=== PATIENT | female | born 1940 | race Caucasian/White ===

== ENCOUNTER 2016-12-13 11:21 | Inpatient (IN) | payer OTHER, MEDICARE ==
[2016-12-13 11:33] VITALS: BMI 29.2
[2016-12-13] MEDS ORDERED: ONDANSETRON 4 MG/2 ML VIAL IVPB ONE (11:39)
[2016-12-13] MEDS ORDERED: SODIUM CHLORIDE 500 ML IV STA (11:39)
[2016-12-13] MEDS ORDERED: ONDANSETRON 4 MG/2 ML VIAL ONE (11:49)
[2016-12-13] MEDS ORDERED: morphine CARPU-JECT 2 MG/1 ML DISP.SYRIN IVPUSH ONE (11:50)
[2016-12-13] MEDS ORDERED: morphine CARPU-JECT 2 MG/1 ML DISP.SYRIN ONE (11:51)
--- NOTE | 2016-12-13 11:54 | PDOC ---
History of Present Illness <Aleks Mondragon - Last Filed: 12/13/16 13:40> - General History Source: Patient Exam Limitations: No Limitations - History of Present Illness Initial Comments: 12/13/16 13:18 The patient is a 76 year old female with a significant past medical history of kidney stones, diabetes, hypertension, cardiomyopathy s/p pacemaker who presents to the ED with complaints of abdominal pain, nausea, and vomiting for several days. The patient was recently seen in the ED yesterday for similar symptoms and was diagnosed with diverticulitis and discharged on oral antibiotics. The patient reports slight relief to her abdominal pain secondary to the medicine given in the ED yesterday. The patient reports she ate a yogurt last night and was unable to sleep secondary to nausea and gas. She states she took levaquin, reglan and percocet this morning and reports multiple episodes of vomiting. The patient reports chills associated with present symptoms. Denies fever or weakness. Denies chest pain or shortness of breath. Denies diarrhea or hematochezia. Denies frequency, urgency, or hematuria. Denies any other symptoms. PMD: Dr. Perez. <Dee Ruvalcaba - Last Filed: 12/13/16 15:54> - General Chief Complaint: Nausea/Vomiting Stated Complaint: VOMITING,PAIN Time Seen by Provider: 12/13/16 11:38 Past History - Past Medical History Anemia: No Asthma: No Cancer: No Cardiac Disorders: Yes (cardiomyopathy) CVA: No COPD: No CHF: No Dementia: No Diabetes: Yes GI Disorders: No Disorders: (Hx: kidney stones) HTN: Yes Hypercholesterolemia: Yes Liver Disease: No Suicide Attempt (Hx): No Seizures: No Thyroid Disease: No - Surgical History Abdominal Surgery: No Appendectomy: No Cardiac Surgery: Yes (PACEMAKER) Cholecystectomy: Yes Lung Surgery: No Neurologic Surgery: No Orthopedic Surgery: Yes (left knee surgery) - Psycho/Social/Smoking Cessation Hx Anxiety: No Suicidal Ideation: No Smoking History: Never smoked Have you smoked in the past 12 months: No Hx Alcohol Use: No Drug/Substance Use Hx: No Substance Use Type: None Hx Substance Use Treatment: No <Aleks Mondragon - Last Filed: 12/13/16 13:40> <Dee Ruvalcaba - Last Filed: 12/13/16 15:54> - Past Medical History Allergies/Adverse Reactions: Allergies Allergy/AdvReac Type Severity Reaction Status Date / Time No Known Drug Allergies Allergy Unknown Verified 12/13/16 11:27 wheat sensitivity AdvReac Uncoded 12/13/16 11:27 Home Medications: Ambulatory Orders Aspirin Coated [Ecotrin -] 81 mg PO DAILY 10/20/14 Nebivolol HCl [Bystolic] 5 mg PO DAILY 10/20/14 Rosuvastatin [Crestor -] 20 mg PO DAILY 10/20/14 Ca/D3/Mag#11/Zinc/Event Planner/Randy/Bor [Caltrate 600+D Plus Tablet] 1 each PO DAILY Metformin HCl 500 mg PO HS 08/07/15 Metformin HCl [Glucophage -] 1,000 mg PO DAILY 08/07/15 Ramipril 10 mg PO DAILY 08/07/15 Levofloxacin [Levaquin] 750 mg PO DAILY #10 tab 12/12/16 Metronidazole [Flagyl -] 500 mg PO QID #40 tablet 12/12/16 Oxycodone HCl/Acetaminophen [Percocet 5-325 mg Tablet] 1 - 2 tab PO Q4H #20 tablet MDD 6 12/12/16 Review of Systems - Review of Systems Able to Perform ROS?: Yes Comments:: 12/13/16 13:18 CONSTITUTIONAL: +chills No reported: Fever, Diaphoresis, Generalized Weakness, Malaise, Loss of Appetite HEENT: No reported: Rhinorrhea, Nasal Congestion, Throat Pain, Throat Swelling, Difficulty Swallowing, Mouth Swelling, Ear Pain, Eye Pain, Visual Changes CARDIOVASCULAR: No reported: Chest Pain, Syncope, Palpitations, Irregular Heart Rate, Lightheadedness, Peripheral Edema RESPIRATORY: No reported: Cough, Shortness of Breath, SOB with Exertion, Orthopnea, Wheezing , Stridor, Hemoptysis GASTROINTESTINAL: + abdominal pain, nausea, vomiting No reported: Abdominal Distension, Diarrhea, Constipation, Melena, Hematochezia GENITOURINARY: No reported: Dysuria, Frequency, Urgency, Hesitancy, Flank Pain, Genital Pain MUSCULOSKELETAL: No reported: Myalgia, Arthralgia, Joint Swelling, Back pain, Neck Pain SKIN: No reported: Rash, Itching, Pallor HEMEATOLOGIC/IMMUNOLOGIC: No reported: Easy Bleeding, Easy Bruising, Lymphadenopathy, Frequent infections ENDOCRINE: No reported: Unexplained Weight Gain, Unexplained Weight Loss, Heat Intolerance , Cold Intolerance NEUROLOGIC: No reported: Headache, Focal Weakness, Paresthesias, Vertigo, Lightheadedness, Unsteady Gait, Seizure, Mental Status Changes, Incontinence PSYCHIATRIC: No reported: Anxiety, Depression All Other Systems: Reviewed and Negative <Dee Ruvalcaba - Last Filed: 12/13/16 15:54> *Physical Exam - Vital Signs Last Vital Signs Temp Pulse Resp BP Pulse Ox 97.9 F 95 H 22 126/68 99 12/13/16 11:27 12/13/16 11:27 12/13/16 11:27 12/13/16 11:27 12/13/16 11:27 <AlannaAleks - Last Filed: 12/13/16 13:40> - Vital Signs Last Vital Signs Temp Pulse Resp BP Pulse Ox 97.9 F 95 H 22 126/68 99 12/13/16 11:27 12/13/16 11:27 12/13/16 11:27 12/13/16 11:27 12/13/16 11:27 - Physical Exam Comments: 12/13/16 13:18 GENERAL: The patient is awake, alert, and fully oriented, Nontoxic - in no acute distress. HEAD: Normocephalic, atraumatic. EYES: extraocular movements intact, sclera anicteric, conjunctiva clear. ENT: Normal voice, Moist mucous membranes. NECK: Normal range of motion, supple LUNGS: Breath sounds equal, clear to auscultation bilaterally. No wheezes, no rhonchi, no rales. HEART: Regular rate and rhythm, without murmur, rub or gallop. ABDOMEN: + minimal abdominal tenderness. Soft, normoactive bowel sounds. No guarding, no rebound.No CVA tenderness EXTREMITIES: Normal range of motion, no edema. No clubbing or cyanosis. No cords, erythema, or tenderness. NEUROLOGICAL: No facial assymetry, Normal speech, PSYCH: Normal mood, normal affect. SKIN: Warm, Dry, normal turgor <Dee Ruvalcaba - Last Filed: 12/13/16 15:54> Heart Score/ECG Review - ECG Impressions Comment:: 12/13/16 12:47 Twelve-lead EKG was performed and reviewed by me. There is normal sinus rhythm with a normal rate. Rate of [address] changes suggestive of ischemia <Aleks Mondragon - Last Filed: 12/13/16 13:40> ED Treatment Course - LABORATORY CBC & Chemistry Diagram: 12/13/16 12:00 12/13/16 12:00 <Aleks Mondragon - Last Filed: 12/13/16 13:40> - LABORATORY CBC & Chemistry Diagram: 12/13/16 12:00 12/13/16 12:00 - ADDITIONAL ORDERS Additional order review: Laboratory Results 12/13/16 12/13/16 12:00 12:00 Sodium 143 Potassium 3.8 Chloride 108 H Carbon Dioxide 23 Anion Gap 12 BUN 16 Creatinine 0.9 Creat Clearance w eGFR > 60 Random Glucose 116 H D Lactic Acid 2.033 H* Calcium 8.8 Total Bilirubin 0.3 D AST 11 L D ALT 18 Alkaline Phosphatase 100 Total Protein 6.2 L Albumin 3.4 12/13/16 12:00 RBC 4.80 MCV 83.7 MCHC 32.8 RDW 14.6 MPV 8.2 Neutrophils % 51.0 Lymphocytes % 41.0 H D Monocytes % 5.0 Eosinophils % 1.0 - RADIOLOGY Radiograph Interpretation: 12/13/16 15:53 RAD/CHEST X-RAY PORTABLE Impression: development of mild congestion. Please note the trachea is deviated to the left and lordotic and thoracic inlet suggestive of thyroidal enlargement. Reported by: Blaine Wolf - Medications Given in the ED: ED Medications Discontinued Medications Generic Name Dose Route Start Last Admin Trade Name Freq PRN Reason Stop Dose Admin Sodium Chloride 500 mls @ 500 mls/hr 12/13/16 11:39 12/13/16 12:00 Normal Saline - IV 12/13/16 12:38 500 mls/hr ASDIR STA Administration Morphine Sulfate 2 mg 12/13/16 11:50 12/13/16 12:00 Morphine Injection - IVPUSH 12/13/16 11:51 2 mg ONCE ONE Administration Ondansetron HCl 4 mg 12/13/16 11:39 12/13/16 12:00 Zofran Injection IVPB 12/13/16 11:40 4 mg ONCE ONE Administration <Dee Ruvalcaba - Last Filed: 12/13/16 15:54> Medical Decision Making - Medical Decision Making 12/13/16 11:51 76y F hx of cardiomyopathy s/p PM, dm, htn, recent dx of diverticultis presents with persistent pain, and nausea/vomiting since yesterday. on exam pt is in no distress, but minimal LLQ tenderness. vitals normal will treat patient sypmtomatically if persistent pain w n/v will admit for inpatient management of diverticulitis A portion of this note was documented by scribe services under my direction. I have reviewed the details of the note, within reason, and agree with the documentation with the following case summary and management plan written by me 12/13/16 13:31 The patients labs reviewed, lactic acid borderline at 2.08 feeling improved, however after disucssion with dr. Perez (PMD) due to the pts age and hx of cardiomypathy, will admit for iv abx will admit to hospitalist team (covering for [facility]) 12/13/16 13:40 case dw [employer] CLAIMS EXAMINER Humera Vences agreed with inpatient admission and management of diverticulitis stable for med/surg Case discussed in detail with admitting physician including history, physical exam and ancillary studies. Admitting physician has assumed care for the patient, will follow all pending diagnostics and will complete the evaluation and treatment. <Aleks Mondragon - Last Filed: 12/13/16 13:40> - Medical Decision Making 12/13/16 13:[address] Perez at 13:27 <Dee Ruvalcaba - Last Filed: 12/13/16 15:54> *DC/Admit/Observation/Transfer - Discharge Dispostion Admit: Yes <Aleks Mondragon - Last Filed: 12/13/16 13:40> - Attestations Scribe Attestion: 12/13/16 13:19 Documentation prepared by Dee Ruvalcaba, acting as medical assistant prn for Aleks Mondragon MD <Dee Ruvalcaba - Last Filed: 12/13/16 15:54> Diagnosis at time of Disposition: Diverticulitis Qualifiers: Diverticulitis site: large intestine Diverticulitis bleeding: without bleeding Diverticulitis complication: without perforation or abscess Qualified Code(s): K57.32 - Diverticulitis of large intestine without perforation or abscess without bleeding - Discharge Dispostion Condition at time of disposition: Stable - Referrals
[2016-12-13 12:12] LABS: MCH 27.4 pg (25.7-33.7); MCHC 32.8 g/dl (32.0-36.0); MEAN CELL VOLUME 83.7 fl (80-96); MEAN PLT VOLUME 8.2 fl (7.5-11.1); PLATELET COUNT 171 K/MM3 (134-434); RDW 14.6 % (11.6-15.6); WHITE BLOOD COUNT 7.7 K/mm3 (4.0-10.0)
[2016-12-13 12:35] LABS: PLATELET ESTIMATE ADEQUATE (NORMAL)
[2016-12-13 12:37] LABS: ALBUMIN 3.4 g/dl (3.4-5.0); ALK PHOS 100 U/L (45-117); ANION GAP 12 (8-16); BILIRUBIN,TOTAL 0.3 mg/dL (0.2-1.0); CALCIUM 8.8 mg/dL (8.5-10.1); CO2 23 mmol/L (21-32); CREATININE 0.9 mg/dL (0.55-1.02); GLUCOSE,RANDOM 116 mg/dL (74-106); SGOT/AST 11 U/L (15-37); SGPT/ALT 18 U/L (12-78); TOT PROT 6.2 g/dl (6.4-8.2)
[2016-12-13] MEDS ORDERED: LEVOFLOXACIN 500 MG IVPB 100 ML IVPB ONE ×2 (13:30→16:04)
--- NOTE | 2016-12-13 15:09 | HP ---
[id number] with a significant past medical history of kidney stones, diabetes , hypertension, cardiomyopathy s/p pacemaker checked 3 months ago, chronic diarrhea, ?IBS, who presented to the ED yesterday with complaints of abdominal pain, nausea, and vomiting for several days, was diagnosed with diverticulitis and discharged on oral flagyl/Levaquin. She came back to ED as she was unable to sleep secondary to nausea and gas and had multiple episodes of vomiting. In ER, vitals stable, pulse 95/min Abdo/Pel CT-12/12/16-showed mild diverticulitis, 3mm LLL pleural nodule, no renal stones, no hydronephrosis Recent Travel:none reported PAST MEDICAL HISTORY:as above PAST SURGICAL HISTORY:hysterectomy, cholecystectomy, removal of renal calculus( rt side) Social History: Smoking:no Alcohol:no Drugs: denied Family History: Allergies-none No Known Drug Allergies Allergy (Unknown, Verified 12/13/16 11:27) wheat sensitivity Adverse Reaction (Uncoded 12/13/16 11:27) HOME MEDICATIONS: Home Medications Medication Instructions Recorded Aspirin Coated [Ecotrin -] 81 mg PO DAILY 10/20/14 Nebivolol HCl [Bystolic] 5 mg PO DAILY 10/20/14 Rosuvastatin [Crestor -] 20 mg PO DAILY 10/20/14 Ca/D3/Mag#11/Zinc/Explosive Ordnance Disposal Specialist/Randy/Bor 1 each PO DAILY 08/07/15 [Caltrate 600+D Plus Tablet] Metformin HCl 500 mg PO AM 08/07/15 Metformin HCl [Glucophage -] 1,000 mg PO HS 08/07/15 Ramipril 10 mg PO DAILY 08/07/15 Levofloxacin [Levaquin] 750 mg PO DAILY #10 tab 12/12/16 Metronidazole [Flagyl -] 500 mg PO QID #40 tablet 12/12/16 Oxycodone HCl/Acetaminophen 1 - 2 tab PO Q4H #20 tablet MDD 6 12/12/16 [Percocet 5-325 mg Tablet] cilostazal 100mg bid REVIEW OF SYSTEMS CONSTITUTIONAL: Absent: fever, chills, diaphoresis, generalized weakness, malaise, loss of appetite, weight change HEENT: Absent: rhinorrhea, nasal congestion, throat pain, throat swelling, difficulty swallowing, mouth swelling, ear pain, eye pain, visual changes CARDIOVASCULAR: Absent: chest pain, syncope, palpitations, irregular heart rate, lightheadedness , peripheral edema RESPIRATORY: Absent: cough, shortness of breath, dyspnea with exertion, orthopnea, wheezing, stridor, hemoptysis GASTROINTESTINAL: positive abdominal pain-LLQ, Left flank, nausea, vomiting, chronic diarrhea GENITOURINARY: Absent: dysuria, frequency, urgency, hesitancy, hematuria, flank pain, genital pain MUSCULOSKELETAL: Absent: myalgia, arthralgia, joint swelling, back pain, neck pain SKIN: old surgical scar-Rt flank area HEMATOLOGIC/IMMUNOLOGIC: Absent: easy bleeding, easy bruising, lymphadenopathy, frequent infections ENDOCRINE: Absent: unexplained weight gain, unexplained weight loss, heat intolerance, cold intolerance NEUROLOGIC: Absent: headache, focal weakness or paresthesias, dizziness, unsteady gait, seizure, mental status changes, bladder or bowel incontinence PSYCHIATRIC: Absent: anxiety, depression, suicidal or homicidal ideation, hallucinations. PHYSICAL EXAMINATION GENERAL: Awake, alert, and fully oriented, in no acute distress. HEAD: Normal with no signs of trauma. EYES: extraocular movements intact, sclera anicteric, conjunctiva clear. No lid lag. EARS, NOSE, THROAT: Ears normal, nares patent, oropharynx clear without exudates.dry mucous membranes. NECK: Normal range of motion, supple without lymphadenopathy, JVD, or masses. LUNGS: Breath sounds equal, clear to auscultation bilaterally. No wheezes, and no crackles. No accessory muscle use. HEART: Regular rate and rhythm, normal S1 and S2 ABDOMEN: LLQ tender on deep palpation MUSCULOSKELETAL: No CVA tenderness. EXTREMITIES: 2+ pulses, warm, well-perfused. No calf tenderness. No peripheral edema. NEUROLOGICAL: Cranial nerves II-XII intact. Normal speech. PSYCHIATRIC: Cooperative. Good eye contact. Appropriate mood and affect. SKIN: Warm, dry, normal turgor, no rashes or lesions noted, normal capillary refill. ASSESSMENT/PLAN: This is 76 y/o F with mild diverticultitis, was unable to tolerate PO antibiotics, came back with severe nausea, vomiting. *Mild diverticultis-was unable to tolerate PO antibiotics -Received PO dose today, will give IV doses from noon. -IV flagyl/ Levaquin -GI consult with -Dr.Christopher Chow -Clear liquids for now-advance as tolerated -IV fluids with caution-watch for fluid overload -Pain management-Tylenol prn -Supportive care *DM-monitor -Continue metformin *HTN -continue Ramipril, Bystolic *Intermittent Claudication? -Continue cilostazil *Cardomyopathy with PPM- appear stable -PPM interogated in Aug 2016 -Follows up with -Monitor for fluid overload. Stop IVF as diet is advanced. DVT pro-Heparin SQ, SCD Visit type - Emergency Visit Emergency Visit: No - New Patient This patient is new to me today: Yes Date on this admission: 12/30/16 - Critical Care Critical Care patient: No
[2016-12-13] MEDS: SODIUM CHLORIDE 1,000 ML IV SCH (15:40)
[2016-12-13] MEDS ORDERED: METRONIDAZOLE 500 MG PREMIXED 100 ML IVPB ONE (16:04)
[2016-12-13] MEDS ORDERED: METOCLOPRAMIDE HCL INJECTION 10 MG/2 ML VIAL IVPB PRN (16:18)
--- NOTE | 2016-12-13 17:59 | CON.GI ---
Consult Consult Specialty:: Gastroenterology Referred by:: Dr Perez Reason for Consultation:: Abdominal pain - History of Present Illness Chief Complaint: Left flank and left upper quadrant pain History of Present Illness: 76W developed left flank and LUQ pain yesterday and was referred to the ER by Dr Perez where a CT scan revealed sigmoid diverticulitis. She was discharged on antibiotics and a narcotic analgesic. Today after taking all 3 she developed vomiting and the pain worsened. She describes having diarrhea for several months. She reports that she has not had a solid BM during this time. She has also had two episodes of rectal bleeding several weeks ago. She had a negative Cologuard in 2014 after she had an incomplete colonoscopy to the ascending colon with Dr Castro on 10/27/14 limited by tortuous sigmoid angulations. Moderate sigmoid diverticulosis was noted. 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 No: CVA, TIA Cardio/Vascular: Yes: CAD (Abnormal myocardial perfusion study), HTN, Hyperlipdemia, Other (Angina Pectoris LBBB PVD Vasdodepressor/cardioinhibitory syncopy (Positive Tilt Table Test). PPM inserted 2015) Pulmonary: Yes: Pneumonia (See above) Gastrointestinal: Yes: Constipation, Diverticulosis, GERD, Hemorrhoids, Irritable Bowel Disease, Peptic Ulcer Disease (duodenitis with H Pylori), Other (NAFLD) Hepatobiliary: Yes: Cholelithiasis (s/p GB surgery), Other (NAFLD) Renal/: Yes: Hematuria (recent urologic work-up), Renal Calculi, UTI Musculoskeletal: Yes: Osteoarthritis (Left knee menisceal tear), Other ( osteoporosis, left rotator cuff tear) Endocrine: Yes: Diabetes Mellitus, Other (Enlarged thyroid on CT) Dermatology: Yes: Basal Cell, Other (recent petechial rash on legs) - Past Surgical History Past Surgical History: Yes: Arthrosocopy (left knee), Cataract Removal ( Bilateral), Cholecystectomy (lap choly), Colonoscopy, Hysterectomy (TAHBSO), Permanent Pacemaker, Tonsillectomy, Upper Endoscopy Additional Surgical History: right open ureteral stone excision - Alcohol/Substance Use Hx Alcohol Use: No History of Substance Use: reports: None - Smoking History Smoking history: Never smoked Have you smoked in the past 12 months: No - Social History Usual Living Arrangement: With Spouse ADL: Independent Place of : Other ([place]) Came to [place] (year): age 13 History of Recent Travel: No Home Medications - Allergies Allergies/Adverse Reactions: Allergies Allergy/AdvReac Type Severity Reaction Status Date / Time No Known Drug Allergies Allergy Unknown Verified 12/13/16 11:27 wheat sensitivity AdvReac Uncoded 12/13/16 11:27 - Home Medications Home Medications: Ambulatory Orders Aspirin Coated [Ecotrin -] 81 mg PO DAILY 10/20/14 Nebivolol HCl [Bystolic] 5 mg PO DAILY 10/20/14 Rosuvastatin [Crestor -] 20 mg PO DAILY 10/20/14 Ca/D3/Mag#11/Zinc/Wagon Person/Randy/Bor [Caltrate 600+D Plus Tablet] 1 each PO DAILY Metformin HCl 500 mg PO DAILY 08/07/15 Metformin HCl [Glucophage -] 1,000 mg PO HS 08/07/15 Ramipril 5 mg PO DAILY 08/07/15 Levofloxacin [Levaquin] 750 mg PO DAILY #10 tab 12/12/16 Metronidazole [Flagyl -] 500 mg PO QID #40 tablet 12/12/16 Oxycodone HCl/Acetaminophen [Percocet 5-325 mg Tablet] 1 - 2 tab PO Q4H #20 tablet MDD 6 12/12/16 Cilostazol 100 mg .ROUTE BID 12/13/16 Family Disease History - Family Disease History Family Disease History: CA: Father ( 67 nasopharyngeal cancer), Mother ( 62 leukemia) Review of Systems - Review of Systems Constitutional: reports: No Symptoms Eyes: reports: No Symptoms HENT: reports: No Symptoms Neck: reports: No Symptoms Cardiovascular: reports: No Symptoms Respiratory: reports: No Symptoms Gastrointestinal: reports: Abdominal Pain, Bloating, Diarrhea, Nausea, Rectal Bleeding, Vomiting Genitourinary: reports: No Symptoms Musculoskeletal: reports: No Symptoms Integumentary: reports: No Symptoms Neurological: reports: No Symptoms Endocrine: reports: No Symptoms Hematology/Lymphatic: reports: No Symptoms Physical Exam-GI Vital Signs: Vital Signs Temperature 97.9 F 12/13/16 11:27 Pulse Rate 95 H 12/13/16 11:27 Respiratory Rate 22 12/13/16 11:27 Blood Pressure 126/68 12/13/16 11:27 O2 Sat by Pulse Oximetry (%) 99 12/13/16 11:27 CBC,CMP WBC 7.7 K/mm3 (4.0-10.0) D 12/13/16 12:00 RBC 4.80 M/mm3 (3.60-5.2) 12/13/16 12:00 Hgb 13.2 GM/dL (10.7-15.3) 12/13/16 12:00 Hct 40.2 % (32.4-45.2) 12/13/16 12:00 MCV 83.7 fl (80-96) 12/13/16 12:00 MCHC 32.8 g/dl (32.0-36.0) 12/13/16 12:00 RDW 14.6 % (11.6-15.6) 12/13/16 12:00 Plt Count 171 K/MM3 (134-434) 12/13/16 12:00 MPV 8.2 fl (7.5-11.1) 12/13/16 12:00 Neutrophils % 51.0 % (42.8-82.8) 12/13/16 12:00 Lymphocytes % 41.0 % (8-40) H D 12/13/16 12:00 Monocytes % 5.0 % (3.8-10.2) 12/13/16 12:00 Eosinophils % 1.0 % (0-4.5) 12/13/16 12:00 Band Neutrophils 1.0 % (0-10) D 12/13/16 12:00 Differential Comment Manual diff done 12/13/16 12:00 Platelet Estimate Adequate (NORMAL) 12/13/16 12:00 Sodium 143 mmol/L (136-145) 12/13/16 12:00 Potassium 3.8 mmol/L (3.5-5.1) 12/13/16 12:00 Chloride 108 mmol/L (98-107) H 12/13/16 12:00 Carbon Dioxide 23 mmol/L (21-32) 12/13/16 12:00 Anion Gap 12 (8-16) 12/13/16 12:00 BUN 16 mg/dL (7-18) 12/13/16 12:00 Creatinine 0.9 mg/dL (0.55-1.02) 12/13/16 12:00 Creat Clearance w eGFR > 60 (>60) 12/13/16 12:00 Random Glucose 116 mg/dL (74-106) H D 12/13/16 12:00 Lactic Acid 2.033 mmol/L (0.4-2.0) H* 12/13/16 12:00 Calcium 8.8 mg/dL (8.5-10.1) 12/13/16 12:00 Total Bilirubin 0.3 mg/dL (0.2-1.0) D 12/13/16 12:00 AST 11 U/L (15-37) L D 12/13/16 12:00 ALT 18 U/L (12-78) 12/13/16 12:00 Alkaline Phosphatase 100 U/L (45-117) 12/13/16 12:00 Total Protein 6.2 g/dl (6.4-8.2) L 12/13/16 12:00 Albumin 3.4 g/dl (3.4-5.0) 12/13/16 12:00 Current Medications Generic Name Dose Route Start Last Admin Trade Name Freq PRN Reason Stop Dose Admin Aspirin 81 mg 12/13/16 16:30 Ecotrin - PO DAILY [facility] Cilostazol 100 mg 12/13/16 22:00 Pletal - PO BID [facility] Heparin Sodium (Porcine) 5,000 unit 12/13/16 22:00 Heparin - SQ BID [facility] Levofloxacin 100 mls @ 100 mls/hr 12/14/16 10:00 Levaquin 500 Mg Premixed Ivpb - IVPB DAILY [facility] Metronidazole 100 mls @ 100 mls/hr 12/13/16 22:00 Flagyl 500mg Premixed Ivpb - IVPB Q6H-IV [facility] Sodium Chloride 1,000 mls @ 75 mls/hr 12/13/16 15:15 12/13/16 15:40 Normal Saline - IV 75 mls/hr ASDIR TYREL Administration Metformin HCl 1,000 mg 12/13/16 22:00 Glucophage - PO HS [facility] Metformin HCl 500 mg 12/14/16 07:00 Glucophage - PO DAILY@0700 [facility] Metoclopramide HCl 10 mg 12/13/16 16:18 Reglan Injection - IVPB Q6H PRN NAUSEA AND/OR VOMITING Nebivolol 5 mg 12/13/16 16:15 Bystolic - PO DAILY [facility] Pantoprazole Sodium 20 mg 12/13/16 22:00 Protonix - PO BID [facility] Ramipril 5 mg 12/14/16 10:00 Altace - PO DAILY [facility] Constitutional: Yes: Anxious Eyes: Yes: Conjunctiva Clear HENT: Yes: Atraumatic, Normocephalic Neck: Yes: Supple Cardiovascular: Yes: Regular Rate and Rhythm Respiratory: Yes: CTA Bilaterally Gastrointestinal Inspection: Yes: Distention, Scars (healed lap choly, right flank and Pfannensteil incisions) ...Auscultate: Yes: Hypoactive Bowel Sounds ...Palpate: Yes: Soft, Tenderness (LLQ tenderness but no peritoneal signs) ...Rectal Exam: Yes: Guaiac Negative, Other (no masses) Imaging - Results Cat Scan: Image Reviewed Assessment/Plan Impression: Picture is consistent with sigmoid diverticulitis. I believe that the diarrhea that Ria describes is actually paradoxical diarrhea and that she is fecally impacted above a tortuous narrowed sigmoid leading to increased pressure and her diverticulitis. Continue IV antibiotics. I will therefore order Miralax to relieve the impaction and allow clear liquids. Can advance the diet as tolerated. Dr Amaya will be covering this weekend.
[2016-12-13] MEDS: NEBIVOLOL 5 MG TABLET (FP) PO SCH (18:46)
[2016-12-13] MEDS: ASPIRIN COATED 81 MG TABLET.EC PO SCH (18:47)
[2016-12-13] MEDS: METRONIDAZOLE 500 MG PREMIXED 100 ML IVPB ONE ×2 (19:30→19:31)
[2016-12-13] MEDS: METRONIDAZOLE 500 MG PREMIXED 100 ML IVPB SCH (20:53)
[2016-12-13] MEDS: metFORMIN HCL 500 MG TABLET (FP) PO SCH (22:08)
[2016-12-13] MEDS: HEPARIN NA (PORCINE) 5,000 UNITS/ML 1ML VIAL SQ SCH (22:16)
[2016-12-13] MEDS: PANTOPRAZOLE 20 MG TABLET (FP) PO SCH (22:16)
[2016-12-13] MEDS: POLYETHYLENE GLYCOL 3350 119 GM BTL PO SCH (22:17)
[2016-12-13] MEDS: CILOSTAZOL 100 MG TABLET PO SCH (23:00)
[2016-12-14] MEDS: METRONIDAZOLE 500 MG PREMIXED 100 ML IVPB SCH ×4 (02:50→23:02)
[2016-12-14] MEDS: SODIUM CHLORIDE 1,000 ML IV SCH ×2 (04:10→16:49)
[2016-12-14] MEDS: metFORMIN HCL 500 MG TABLET (FP) PO SCH ×2 (06:14→23:02)
[2016-12-14 08:19] LABS: BASOPHIL 0.5 % (0-2.0); EOSINOPHIL 1.2 % (0-4.5); MCH 27.9 pg (25.7-33.7); MEAN CELL VOLUME 84.4 fl (80-96); MEAN PLT VOLUME 8.3 fl (7.5-11.1); NEUTROPHILS 58.6 % (42.8-82.8); PLATELET COUNT 170 K/MM3 (134-434); RDW 15.1 % (11.6-15.6); WHITE BLOOD COUNT 6.7 K/mm3 (4.0-10.0)
[2016-12-14 09:09] LABS: CALCIUM 8.6 mg/dL (8.5-10.1); CREATININE 0.9 mg/dL (0.55-1.02)
[2016-12-14] MEDS ORDERED: PT OWN MED DRAWER 7, Y5N ONE ×2 (09:32→22:05)
[2016-12-14] MEDS: HEPARIN NA (PORCINE) 5,000 UNITS/ML 1ML VIAL SQ SCH ×2 (09:33→23:02)
[2016-12-14] MEDS: ASPIRIN COATED 81 MG TABLET.EC PO SCH (09:36)
[2016-12-14] MEDS: LEVOFLOXACIN 500 MG IVPB 100 ML IVPB SCH (09:36)
[2016-12-14] MEDS: PANTOPRAZOLE 20 MG TABLET (FP) PO SCH ×2 (09:36→23:03)
[2016-12-14] MEDS: CILOSTAZOL 100 MG TABLET PO SCH ×2 (09:37→23:03)
[2016-12-14] MEDS: RAMIPRIL 5 MG CAPSULE (FP) PO SCH (09:37)
[2016-12-14] MEDS: POLYETHYLENE GLYCOL 3350 119 GM BTL PO SCH ×2 (09:38→23:02)
[2016-12-14] MEDS: NEBIVOLOL 5 MG TABLET (FP) PO SCH (12:17)
--- NOTE | 2016-12-14 12:27 | EKG ---
Test Reason : Blood Pressure : / mmHG Vent. Rate : 085 BPM Atrial Rate : 085 BPM P-R Int : 138 ms QRS Dur : 140 ms QT Int : 418 ms P-R-T Axes : 060 -07 089 degrees QTc Int : 497 ms NORMAL SINUS RHYTHM LEFT BUNDLE BRANCH BLOCK ABNORMAL ECG WHEN COMPARED WITH ECG OF 14-DEC-2014 14:45, T WAVE AMPLITUDE HAS DECREASED IN ANTERIOR LEADS Confirmed by WILBERT HARDEN, SASCHA ([id number]) on 12/14/2016 12:26:44 PM Referred By: Confirmed By:SASCHA ATKINS MD
--- NOTE | 2016-12-14 14:40 | PN ---
GI Progress Note Subjective: GI F/U NO COMPLAINTS FEELS FINE PAIN RESOLVED NO N/V/F/C/S FEELS HUNGRY - Objective Vital Signs: Vital Signs Temperature 98.2 F 12/14/16 08:52 Pulse Rate 98 H 12/14/16 08:52 Respiratory Rate 18 12/14/16 08:52 Blood Pressure 145/90 12/14/16 08:52 O2 Sat by Pulse Oximetry (%) 98 12/14/16 08:52 Constitutional: Well Nourished, No Distress Eyes: Yes: WNL Gastrointestinal Inspection: Yes: WNL (+bs/SOFT/nt) Labs: CBC, BMP 12/14/16 06:30 12/14/16 06:30 Assessment/Plan MILD DIVERTICULITIS NO PAINWBC NROMAL AFEBRILE HUNGRY DUSTIN CORRAL NOW ADVANCE DIET TOLERATED TO REGULAR MD BERNARDINO
--- NOTE | 2016-12-14 16:03 | PN ---
Progress Note (short form) - Note Progress Note: The pain is less No fever O/E Heart regular Lungs clear Abd soft Ext no edema Vital Signs Period Temp Pulse Resp BP Sys/Iraheta Pulse Ox Last 24 Hr 97 F-98.2 F 81-98 18-20 128-145/62-90 96-98 Current Medications Aspirin (Ecotrin -) 81 mg PO DAILY [facility] Last Admin: 12/14/16 09:36 Dose: 81 mg Cilostazol (Pletal -) 100 mg PO BID [facility] Last Admin: 12/14/16 09:37 Dose: 100 mg Heparin Sodium (Porcine) (Heparin -) 5,000 unit SQ BID [facility] Last Admin: 12/14/16 09:33 Dose: 5,000 unit Levofloxacin (Levaquin 500 Mg Premixed Ivpb -) 100 mls @ 100 mls/hr IVPB DAILY [facility] Last Admin: 12/14/16 09:36 Dose: 100 mls/hr Metronidazole (Flagyl 500mg Premixed Ivpb -) 100 mls @ 100 mls/hr IVPB Q6H-IV [facility] Last Admin: 12/14/16 14:21 Dose: 100 mls/hr Sodium Chloride (Normal Saline -) 1,000 mls @ 75 mls/hr IV ASDIR [facility] Last Admin: 12/14/16 04:10 Dose: 75 mls/hr Metformin HCl (Glucophage -) 1,000 mg PO HS [facility] Last Admin: 12/13/16 22:08 Dose: Not Given Metformin HCl (Glucophage -) 500 mg PO DAILY@0700 [facility] Last Admin: 12/14/16 06:14 Dose: Not Given Metoclopramide HCl (Reglan Injection -) 10 mg IVPB Q6H PRN PRN Reason: NAUSEA AND/OR VOMITING Nebivolol (Bystolic -) 5 mg PO DAILY [facility] Last Admin: 12/14/16 12:17 Dose: 5 mg Pantoprazole Sodium (Protonix -) 20 mg PO BID [facility] Last Admin: 12/14/16 09:36 Dose: 20 mg Polyethylene Glycol (Miralax (For Daily Use) -) 17 gm PO BID [facility] Last Admin: 12/14/16 09:38 Dose: 17 gm Ramipril (Altace -) 5 mg PO DAILY [facility] Last Admin: 12/14/16 09:37 Dose: 5 mg Laboratory Results - last 24 hr 12/13/16 12/13/16 12/14/16 18:13 22:07 06:03 WBC RBC Hgb Hct MCV MCHC RDW Plt Count MPV Neutrophils % Lymphocytes % Monocytes % Eosinophils % Basophils % Sodium Potassium Chloride Carbon Dioxide Anion Gap BUN Creatinine POC Glucometer 164 92 120 Random Glucose Calcium 12/14/16 12/14/16 12/14/16 06:30 06:30 12:16 WBC 6.7 RBC 4.67 Hgb 13.0 Hct 39.4 MCV 84.4 MCHC 33.0 RDW 15.1 Plt Count 170 MPV 8.3 Neutrophils % 58.6 Lymphocytes % 30.1 D Monocytes % 9.6 D Eosinophils % 1.2 Basophils % 0.5 Sodium 145 Potassium 4.3 Chloride 109 H Carbon Dioxide 25 Anion Gap 11 BUN 12 D Creatinine 0.9 POC Glucometer 177 Random Glucose 137 H Calcium 8.6 A&P 1. Diverticulits 2. NIDDM 3. HTN She is improving with the ABX, cont present care.
[2016-12-15] MEDS: METRONIDAZOLE 500 MG PREMIXED 100 ML IVPB SCH ×3 (03:30→14:08)
[2016-12-15] MEDS: metFORMIN HCL 500 MG TABLET (FP) PO SCH ×2 (06:32→21:29)
[2016-12-15] MEDS ORDERED: AMOX TR/POT CLAV 875MG/125MG TABLETS (FP) PO SCH (08:00)
[2016-12-15] MEDS ORDERED: PT OWN MED DRAWER 7, Y5N ONE (09:07)
[2016-12-15] MEDS: LEVOFLOXACIN 500 MG IVPB 100 ML IVPB SCH (09:13)
[2016-12-15] MEDS: POLYETHYLENE GLYCOL 3350 119 GM BTL PO SCH ×2 (09:13→21:29)
[2016-12-15] MEDS: PANTOPRAZOLE 20 MG TABLET (FP) PO SCH ×2 (09:14→21:29)
[2016-12-15] MEDS: ASPIRIN COATED 81 MG TABLET.EC PO SCH (09:14)
[2016-12-15] MEDS: CILOSTAZOL 100 MG TABLET PO SCH ×2 (09:14→21:30)
[2016-12-15] MEDS: RAMIPRIL 5 MG CAPSULE (FP) PO SCH (09:14)
[2016-12-15] MEDS: NEBIVOLOL 5 MG TABLET (FP) PO SCH (09:14)
[2016-12-15] MEDS: HEPARIN NA (PORCINE) 5,000 UNITS/ML 1ML VIAL SQ SCH ×2 (09:15→21:29)
[2016-12-15] MEDS: SODIUM CHLORIDE 1,000 ML IV SCH (20:00)
--- NOTE | 2016-12-15 20:05 | PN ---
Progress Note (short form) - Note Progress Note: Had a BM LLQ pain is less No fever O/E Heart regular'Lungs clear Abd soft LLQ tenderness is less Ezt no edema Vital Signs Period Temp Pulse Resp BP Sys/Iraheta Pulse Ox Last 24 Hr 97.6 F-98.2 F 79-94 18-20 112-138/62-85 97 Laboratory Results - last 24 hr 12/15/16 12/15/16 06:29 16:28 POC Glucometer 126 135 Current Medications Aspirin (Ecotrin -) 81 mg PO DAILY [facility] Last Admin: 12/15/16 09:14 Dose: 81 mg Cilostazol (Pletal -) 100 mg PO BID [facility] Last Admin: 12/15/16 09:14 Dose: 100 mg Heparin Sodium (Porcine) (Heparin -) 5,000 unit SQ BID [facility] Last Admin: 12/15/16 09:15 Dose: 5,000 unit Levofloxacin (Levaquin 500 Mg Premixed Ivpb -) 100 mls @ 100 mls/hr IVPB DAILY [facility] Last Admin: 12/15/16 09:13 Dose: 100 mls/hr Metronidazole (Flagyl 500mg Premixed Ivpb -) 100 mls @ 100 mls/hr IVPB Q6H-IV [facility] Last Admin: 12/15/16 14:08 Dose: 100 mls/hr Sodium Chloride (Normal Saline -) 1,000 mls @ 75 mls/hr IV ASDIR [facility] Last Admin: 12/14/16 16:49 Dose: Not Given Metformin HCl (Glucophage -) 1,000 mg PO HS [facility] Last Admin: 12/14/16 23:02 Dose: Not Given Metformin HCl (Glucophage -) 500 mg PO DAILY@0700 [facility] Last Admin: 12/15/16 06:32 Dose: 500 mg Metoclopramide HCl (Reglan Injection -) 10 mg IVPB Q6H PRN PRN Reason: NAUSEA AND/OR VOMITING Nebivolol (Bystolic -) 5 mg PO DAILY [facility] Last Admin: 12/15/16 09:14 Dose: 5 mg Pantoprazole Sodium (Protonix -) 20 mg PO BID [facility] Last Admin: 12/15/16 09:14 Dose: 20 mg Polyethylene Glycol (Miralax (For Daily Use) -) 17 gm PO BID [facility] Last Admin: 12/15/16 09:13 Dose: 17 gm Ramipril (Altace -) 5 mg PO DAILY [facility] Last Admin: 12/15/16 09:14 Dose: 5 mg A&P 1. Diverticulits 2. NIDDM 3. HTN Reaolving Cont present care Change ABX and possible discharge home to [place].
[2016-12-16] MEDS: metFORMIN HCL 500 MG TABLET (FP) PO SCH (06:24)
[2016-12-16 07:35] VITALS: BP 135/76; PULSE 86; TEMP 97.8
[2016-12-16] MEDS ORDERED: AMOX TR/POT CLAV 875MG/125MG TABLETS (FP) PO SCH (08:00)
--- NOTE | 2016-12-16 09:02 | DS ---
Physical Examination Vital Signs: Vital Signs Temperature 97.8 F 12/16/16 07:35 Pulse Rate 86 12/16/16 07:35 Respiratory Rate 18 12/16/16 07:35 Blood Pressure 135/76 12/16/16 07:35 O2 Sat by Pulse Oximetry (%) 99 12/15/16 21:00 Constitutional: Yes: Well Nourished, No Distress Eyes: No: Sclera Icterus Cardiovascular: Yes: Regular Rate and Rhythm Respiratory: Yes: CTA Bilaterally Gastrointestinal: Yes: Normal Bowel Sounds, Soft, Distention. No: Tenderness Edema: No Neurological: Yes: Alert, Oriented Labs: CBC, BMP 12/14/16 06:30 12/14/16 06:30 Discharge Summary Reason For Visit: DIVERTICULITIS OF INTESTINE Hospital Course: Please refer top daily notes Likely diverticulitis presenting initially with left flank pain. Currently stable with persistence of abdominal distention Labs and notes reviewed Condition: Good - Instructions Diet, Activity, Other Instructions: Advance as tolerated. Follow-up with GI. Call office for appt Referrals: Toño Perez MD [Primary Care Provider] - Disposition: HOME - Home Medications Comprehensive Discharge Medication List: Ambulatory Orders Aspirin Coated [Ecotrin -] 81 mg PO DAILY 10/20/14 Nebivolol HCl [Bystolic] 5 mg PO DAILY 10/20/14 Rosuvastatin [Crestor -] 20 mg PO DAILY 10/20/14 Ca/D3/Mag#11/Zinc/Glass Bender/Randy/Bor [Caltrate 600+D Plus Tablet] 1 each PO DAILY Metformin HCl 500 mg PO DAILY 08/07/15 Metformin HCl [Glucophage -] 1,000 mg PO HS 08/07/15 Ramipril 5 mg PO DAILY 08/07/15 Levofloxacin [Levaquin] 750 mg PO DAILY #10 tab 12/12/16 Cilostazol 100 mg .ROUTE BID 12/13/16 Metronidazole [Flagyl -] 500 mg PO TID #40 tablet 12/16/16 Polyethylene Glycol 3350 [Miralax 119 gm Btl -] 17 gm PO BID bottle 12/16/16
[2016-12-16] MEDS ORDERED: PT OWN MED DRAWER 7, Y5N ONE (09:31)
[2016-12-16] MEDS: PANTOPRAZOLE 20 MG TABLET (FP) PO SCH (09:37)
[2016-12-16] MEDS: ASPIRIN COATED 81 MG TABLET.EC PO SCH (09:37)
[2016-12-16] MEDS: NEBIVOLOL 5 MG TABLET (FP) PO SCH (09:38)
[2016-12-16] MEDS: POLYETHYLENE GLYCOL 3350 119 GM BTL PO SCH (09:38)
[2016-12-16] MEDS: CILOSTAZOL 100 MG TABLET PO SCH (09:38)
[2016-12-16] MEDS: RAMIPRIL 5 MG CAPSULE (FP) PO SCH (09:38)
[2016-12-16] MEDS: HEPARIN NA (PORCINE) 5,000 UNITS/ML 1ML VIAL SQ SCH (09:39)
== END 2016-12-16 10:25 | disposition home or self-care (01) | DRG 392 ==
LOC: JER 11:21 → JERBED 13:40 → J6S 17:59
PROVIDERS: ADMIT Internal Medicine; ATTEND Internal Medicine
DX: K57.92 Diverticulitis of intestine, part unspecified, without perforation or abscess without bleeding (principal); I42.9 Cardiomyopathy, unspecified; E11.9 Type 2 diabetes mellitus without complications; I10 Essential (primary) hypertension; Z95.0 Presence of cardiac pacemaker
CPT/HCPCS: 36415; 71010-TC; 74176-TC; 80048; 80053; 81003; 83605; 85025; 85610; 87040; 93005; 93010; 99283-25; J1644

== ENCOUNTER 2016-12-18 18:03 | Emergency (ER) | payer OTHER, MEDICARE ==
[2016-12-18 18:08] VITALS: TEMP 98; BMI 29.2
[2016-12-18 21:10] LABS: BASOPHIL 1.1 % (0-2.0); EOSINOPHIL 1.2 % (0-4.5); MCH 27.8 pg (25.7-33.7); MCHC 33.3 g/dl (32.0-36.0); MEAN CELL VOLUME 83.5 fl (80-96); MEAN PLT VOLUME 8.3 fl (7.5-11.1); NEUTROPHILS 65.3 % (42.8-82.8); PLATELET COUNT 174 K/MM3 (134-434); WHITE BLOOD COUNT 8.6 K/mm3 (4.0-10.0)
[2016-12-18 21:23] LABS: INR 1.09 (0.82-1.09)
[2016-12-18 21:25] LABS: ACTIVATED PTT 32.2 SECONDS (26.9-34.4)
[2016-12-18 21:35] LABS: ALBUMIN 3.6 g/dl (3.4-5.0); ANION GAP 12 (8-16); CALCIUM 8.7 mg/dL (8.5-10.1); CO2 24 mmol/L (21-32); CREATININE 0.8 mg/dL (0.55-1.02); GLUCOSE,RANDOM 131 mg/dL (74-106); SGOT/AST 29 U/L (15-37); SGPT/ALT 36 U/L (12-78); TOT PROT 6.3 g/dl (6.4-8.2)
[2016-12-18 21:36] LABS: ALK PHOS 94 U/L (45-117); BILIRUBIN,TOTAL 0.2 mg/dL (0.2-1.0)
--- NOTE | 2016-12-18 22:11 | PDOC ---
History of Present Illness - General History Source: Patient, Family, Old Records Exam Limitations: No Limitations - History of Present Illness Initial Comments: 12/18/16 23:05 The patient is a 76 year old female, with a significant past medical history of kidney stones, diabetes, hypertension, cardiomyopathy s/p pacemaker, who presents to the emergency department after being sent by her PMD for rectal bleeding, dizziness, weakness and decreased appetite since last night. The patient was recently admitted to the ED on 12/13/2016 for intestinal diverticulitis. She was discharged on 12/16/2016. She was sent home with Levoquin , Phagyl, protonix and Percocet. She notes that today she was administered a rectal exam which showed blood in her stool. She also states that she only took one Percocet pill before discontinuing on her own. The patient denies chest pain, shortness of breath and headache. Denies fever, chills, nausea, vomit, diarrhea and constipation. Denies dysuria, frequency, urgency and hematuria. Allergies: None Past surgical history: Pacemaker, left knee surgery and cholecystectomy Social history: No alcohol, tobacco or drug use reported PMD - Dr. Manuelito Perez GI - Dr. Carr <Blaise Merrill - Last Filed: 12/18/16 23:44> - General History Source: Patient Exam Limitations: No Limitations <Kimani Daugherty - Last Filed: 12/18/16 23:56> - General Chief Complaint: Rectal Bleed Stated Complaint: PCP SENT/RECTAL BLEED Time Seen by Provider: 12/18/16 19:52 Past History <Blaise Merrill - Last Filed: 12/18/16 23:44> - Past Medical History Anemia: No Asthma: No Cancer: No Cardiac Disorders: Yes (cardiomyopathy, ANGINA) CVA: No COPD: No CHF: No Dementia: No Diabetes: Yes GI Disorders: Yes (GERD) Disorders: (Hx: kidney stones) HTN: Yes Hypercholesterolemia: Yes Liver Disease: No Suicide Attempt (Hx): No Seizures: No Thyroid Disease: No Other medical history: OSTEOARTHRITS - Surgical History Abdominal Surgery: No Appendectomy: No Cardiac Surgery: Yes (PACEMAKER) Cholecystectomy: Yes Lung Surgery: No Neurologic Surgery: No Orthopedic Surgery: Yes (left knee surgery) - Psycho/Social/Smoking Cessation Hx Anxiety: No Suicidal Ideation: No Smoking History: Never smoked Have you smoked in the past 12 months: No Hx Alcohol Use: No Drug/Substance Use Hx: No Substance Use Type: None Hx Substance Use Treatment: No <Kimani Daugherty - Last Filed: 12/18/16 23:56> - Past Medical History Allergies/Adverse Reactions: Allergies Allergy/AdvReac Type Severity Reaction Status Date / Time No Known Drug Allergies Allergy Unknown Verified 12/18/16 18:08 wheat sensitivity AdvReac Uncoded 12/18/16 18:08 Home Medications: Ambulatory Orders Aspirin Coated [Ecotrin -] 81 mg PO DAILY 10/20/14 Nebivolol HCl [Bystolic] 5 mg PO DAILY 10/20/14 Rosuvastatin [Crestor -] 20 mg PO DAILY 10/20/14 Ca/D3/Mag#11/Zinc/Senior Quality Assurance Analyst/Randy/Bor [Caltrate 600+D Plus Tablet] 1 each PO DAILY Metformin HCl 500 mg PO DAILY 08/07/15 Metformin HCl [Glucophage -] 1,000 mg PO HS 08/07/15 Ramipril 5 mg PO DAILY 08/07/15 Levofloxacin [Levaquin] 750 mg PO DAILY #10 tab 12/12/16 Cilostazol 100 mg .ROUTE BID 12/13/16 Metronidazole [Flagyl -] 500 mg PO TID #40 tablet 12/16/16 Polyethylene Glycol 3350 [Miralax 119 gm Btl -] 17 gm PO BID bottle 12/16/16 Review of Systems - Review of Systems Able to Perform ROS?: Yes Comments:: 12/18/16 23:07 GENERAL/CONSTITUTIONAL: No fever or chills. HEAD, EYES, EARS, NOSE AND THROAT: No change in vision. No ear pain or discharge. No sore throat. CARDIOVASCULAR: No chest pain or shortness of breath RESPIRATORY: No cough, wheezing, or hemoptysis. GASTROINTESTINAL: +Abdominal bloating, rectal bleeding. No nausea, vomiting, diarrhea or constipation. GENITOURINARY: No dysuria, frequency, or change in urination. MUSCULOSKELETAL: No joint or muscle swelling or pain. No neck or back pain. SKIN: No rash NEUROLOGIC: No headache, vertigo, loss of consciousness, or change in strength/ sensation. ENDOCRINE: No increased thirst. No abnormal weight change HEMATOLOGIC/LYMPHATIC: No anemia, easy bleeding, or history of blood clots. ALLERGIC/IMMUNOLOGIC: No hives or skin allergy. <DesiraeJessicaBlaise Flores - Last Filed: 12/18/16 23:44> *Physical Exam - Vital Signs Last Vital Signs Temp Pulse Resp BP Pulse Ox 98.0 F 107 H 20 159/80 99 12/18/16 18:06 12/18/16 18:06 12/18/16 18:06 12/18/16 18:06 12/18/16 21:05 - Physical Exam Comments: 12/18/16 23:07 GENERAL: Awake, alert, and fully oriented, in no acute distress HEAD: No signs of trauma, normocephalic, atraumatic EYES: PERRLA, EOMI, sclera anicteric, conjunctiva clear ENT: Auricles normal inspection, hearing grossly normal, nares patent, oropharynx clear without exudates. Moist mucosa NECK: Normal ROM, supple, no lymphadenopathy, JVD, or masses LUNGS: No distress, speaks full sentences, clear to auscultation bilaterally HEART: Regular rate and rhythm, normal S1 and S2, no murmurs, rubs or gallops, peripheral pulses normal and equal bilaterally. ABDOMEN: +Left lower quadrant tenderness. Soft, normoactive bowel sounds. No guarding, no rebound. No masses EXTREMITIES: Normal inspection, Normal range of motion, no edema. No clubbing or cyanosis. NEUROLOGICAL: Cranial nerves II through XII grossly intact. Normal speech, normal gait, no focal sensorimotor deficits SKIN: Warm, Dry, normal turgor, no rashes or lesions noted. <SteveeulaliaBlaise - Last Filed: 12/18/16 23:44> - Vital Signs Last Vital Signs Temp Pulse Resp BP Pulse Ox 98.0 F 107 H 20 159/80 99 12/18/16 18:06 12/18/16 18:06 12/18/16 18:06 12/18/16 18:06 12/18/16 21:05 <Kimani Daugherty - Last Filed: 12/18/16 23:56> ED Treatment Course - LABORATORY CBC & Chemistry Diagram: 12/18/16 20:56 12/18/16 20:56 - ADDITIONAL ORDERS Additional order review: Laboratory Results 12/18/16 12/18/16 12/18/16 20:56 20:56 20:56 INR 1.09 PTT (Actin FS) 32.2 D Sodium 143 Potassium 3.9 Chloride 107 Carbon Dioxide 24 Anion Gap 12 BUN 17 D Creatinine 0.8 Creat Clearance w eGFR > 60 Random Glucose 131 H Calcium 8.7 Total Bilirubin 0.2 D AST 29 D ALT 36 D Alkaline Phosphatase 94 Total Protein 6.3 L Albumin 3.6 Lipase 130 Blood Type O POSITIVE Antibody Screen Negative 12/18/16 20:56 RBC 4.87 MCV 83.5 MCHC 33.3 RDW 15.0 MPV 8.3 Neutrophils % 65.3 Lymphocytes % 22.5 D Monocytes % 9.9 Eosinophils % 1.2 Basophils % 1.1 - RADIOLOGY Radiograph Interpretation: 12/18/16 23:[address] with contrast Reviewed by: Dr. Donna Poole Impression: No bowel obstruction, colitis, free fluid or free air. Normal appendix. Few diverticula colon. No acute diverticulitis. Unremarkable pancreas. Cystic foci bilateral kidneys. Cholecystectomy Hysterectomy Subcentimeter left hepatic cyst or hemangioma. 3 mm subpleural nodule left lower lobe, possibly inflammatory. Pacemaker. <Blaise Merrill - Last Filed: 12/18/16 23:44> - LABORATORY CBC & Chemistry Diagram: 12/18/16 20:56 12/18/16 20:56 - ADDITIONAL ORDERS Additional order review: Laboratory Results 12/18/16 12/18/16 20:56 20:56 INR 1.09 PTT (Actin FS) 32.2 D Sodium 143 Potassium 3.9 Chloride 107 Carbon Dioxide 24 Anion Gap 12 BUN 17 D Creatinine 0.8 Creat Clearance w eGFR > 60 Random Glucose 131 H Calcium 8.7 Total Bilirubin 0.2 D AST 29 D ALT 36 D Alkaline Phosphatase 94 Total Protein 6.3 L Albumin 3.6 Lipase 130 12/18/16 20:56 RBC 4.87 MCV 83.5 MCHC 33.3 RDW 15.0 MPV 8.3 Neutrophils % 65.3 Lymphocytes % 22.5 D Monocytes % 9.9 Eosinophils % 1.2 Basophils % 1.1 - RADIOLOGY Radiology Studies Ordered: Category Date Time Status ABDOMEN & PELVIS CT WITH CONTR [CT] Stat CT Scan 12/18/16 20:23 Ordered <Kimani Daugherty - Last Filed: 12/18/16 23:56> Medical Decision Making - Medical Decision Making 12/18/16 22:03 A portion of this note was documented by scribe services under my direction. I have reviewed the details of the note, within reason, and agree with the documentation with the following case summary and management plan written by me. Patient treated in the ED. Nursing notes are reviewed and incorporated into the medical decision-making. Vital signs reviewed. Peripheral IV access obtained by the nurse, laboratory studies are drawn and sent, reviewed and interpreted by myself. Vital Signs Temp Pulse Resp BP Pulse Ox 98.0 F 107 H 20 159/80 99 12/18/16 18:06 12/18/16 18:06 12/18/16 18:06 12/18/16 18:06 12/18/16 21:05 76-year-old female with past medical history of diabetes, hypertension, cardiomegaly, pacemaker, cholecystectomy presents to the emergency department from Dr. Carr's office for rule out upper GI bleed. The patient was recently admitted several days ago for acute diverticulitis which was treated with antibiotics. Patient reports her left lower quadrant pain is improved but is still is persistent. Yesterday, she started noticing that she has dark stools. Has not been taking any iron supplements or Pepto-Bismol. Patient had visited her doctor today and noticed that she's been having some nausea and still persistent loose stools. 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 According to the patient, she had a stool occult performed which was positive. She was sent and also rule out anemia. Labs reviewed and her hemoglobin is approximate 13. I had spoken to Dr. Amaya. If the CT scan is negative, the patient can be discharged on Protonix and have her follow with Dr. Carr. Patient overall is well-appearing and I agree with the plan. 12/18/16 23:49 CBC, BMP 12/18/16 20:56 12/18/16 20:56 CMP Sodium 143 mmol/L (136-145) 12/18/16 20:56 Potassium 3.9 mmol/L (3.5-5.1) 12/18/16 20:56 Chloride 107 mmol/L (98-107) 12/18/16 20:56 Carbon Dioxide 24 mmol/L (21-32) 12/18/16 20:56 Anion Gap 12 (8-16) 12/18/16 20:56 BUN 17 mg/dL (7-18) D 12/18/16 20:56 Creatinine 0.8 mg/dL (0.55-1.02) 12/18/16 20:56 Creat Clearance w eGFR > 60 (>60) 12/18/16 20:56 Random Glucose 131 mg/dL (74-106) H 12/18/16 20:56 Calcium 8.7 mg/dL (8.5-10.1) 12/18/16 20:56 Total Bilirubin 0.2 mg/dL (0.2-1.0) D 12/18/16 20:56 AST 29 U/L (15-37) D 12/18/16 20:56 ALT 36 U/L (12-78) D 12/18/16 20:56 Alkaline Phosphatase 94 U/L (45-117) 12/18/16 20:56 Total Protein 6.3 g/dl (6.4-8.2) L 12/18/16 20:56 Albumin 3.6 g/dl (3.4-5.0) 12/18/16 20:56 Lipase 130 U/L (73-393) 12/18/16 20:56 CT scan reviewed. Demonstrates no acute findings at this time. No obstruction. I did inform the patient other results including the nodule in her chest. I instructed the patient that she will need a repeat CAT scan with her primary care physician. A copy of the CT scan results were given to her. This was reason as to ensure that this was not a malignancy. Patient verbalized understanding agrees to plan. She understands to take Protonix daily which she has a prescription up. She will follow-up with her customer relations representative. I discussed the physical exam findings, ancillary test results and final diagnoses with the patient. I answered all of the patient's questions. The patient was satisfied with the care received and felt comfortable with the discharge plan and treatment plan. The patient will call their primary care physician within 24 hours to arrange follow-up and will return to the Emergency Department with any new, persistant or worsening symptoms. <Kimani Daugherty - Last Filed: 12/18/16 23:56> *DC/Admit/Observation/Transfer - Attestations Scribe Attestion: 12/18/16 23:07 Documentation prepared by Blaise Merrill, acting as medical educator for Kimani Daugherty MD <Blaise Merrill - Last Filed: 12/18/16 23:44> - Discharge Dispostion Admit: No <Kimani Daugherty - Last Filed: 12/18/16 23:56> Diagnosis at time of Disposition: UGIB (upper gastrointestinal bleed) Abdominal pain Qualifiers: Abdominal location: unspecified location Qualified Code(s): R10.9 - Unspecified abdominal pain - Discharge Dispostion Disposition: HOME Condition at time of disposition: Stable - Referrals Referrals: Toño Perez MD [Primary Care Provider] - Callum Amaya MD [Staff Physician] - - Patient Instructions Printed Discharge Instructions: DI for Rectal Bleeding Additional Instructions: Your blood work and your CAT scan demonstrated no acute findings. Please continue your antibiotics as prior. However, given your symptoms, please take your Protonix daily as prescribed. Please follow-up with your customer relations representative. Your CAT scan also incidentally has a 3 mm nodule in your lung. Please bring this copy of your CAT scan to and have a repeat done the in the next several months.
[2016-12-19 00:28] VITALS: BP 142/78; PULSE 78
== END 2016-12-19 00:26 | disposition home or self-care (01) ==
LOC: JER 18:03
DX: K92.2 Gastrointestinal hemorrhage, unspecified (principal); I25.119 Atherosclerotic heart disease of native coronary artery with unspecified angina pectoris; I10 Essential (primary) hypertension; I42.9 Cardiomyopathy, unspecified; Z95.0 Presence of cardiac pacemaker; E11.9 Type 2 diabetes mellitus without complications; Z79.84 Long term (current) use of oral hypoglycemic drugs; E78.00 Pure hypercholesterolemia, unspecified; K21.9 Gastro-esophageal reflux disease without esophagitis
CPT/HCPCS: 36415; 74177-TC; 80053; 83690; 85025; 85610; 85730; 86850; 86900; 86901; 99283-25

== ENCOUNTER 2018-08-08 08:49 | Emergency (ER) | payer OTHER, MEDICARE ==
[2018-08-08 09:13] VITALS: BP 158/68; PULSE 90; TEMP 97.4; BMI 30.1
--- NOTE | 2018-08-08 09:53 | PDOC ---
History of Present Illness - General History Source: Patient Exam Limitations: No Limitations - History of Present Illness Initial Comments: 08/08/18 09:56 The patient is a 77 year old female, with a past medical history of kidney stones (last episode 10 years ago), DM, HTN, cardiomyopathy s/p pacemaker, who presents to the ED with LLQ pain. The patient describes the pain as constant, sharp in sensation, initially 3/10 in severity and now has increased to 9/10, radiating to the back, exacerbated with movement, and accompanied by nausea but no vomiting. Patient has taken Tylenol with no relief of her symptoms. She denies any dysuria or hematuria. She reports experiencing 1 episode of loose stool this morning which is chronic. The patient denies chest pain, shortness of breath and headache. Denies fever, chills, vomit, and constipation. Denies frequency, urgency, and hesitancy. Allergies: None Past surgical history: Pacemaker, left knee surgery and cholecystectomy, partial bowel resection. Social history: No alcohol, tobacco or drug use reported PMD - Dr. Manuelito Perez GI - Dr. Carr Cardio - Dr. Ramey <Perri Phelps - Last Filed: 08/08/18 09:56> - General History Source: Patient, Old Records Exam Limitations: No Limitations <Kimani Daugherty - Last Filed: 08/08/18 12:05> - General Chief Complaint: Pain Stated Complaint: RT SIDE PAIN,NAUSEA Time Seen by Provider: 08/08/18 09:05 Past History <Perri Phelps - Last Filed: 08/08/18 09:56> - Past Medical History Anemia: No Asthma: No Cancer: No Cardiac Disorders: Yes (cardiomyopathy, ANGINA) CVA: No COPD: No CHF: No Dementia: No Diabetes: Yes GI Disorders: Yes (GERD) Disorders: (Hx: kidney stones) HTN: Yes Hypercholesterolemia: Yes Liver Disease: No Seizures: No Thyroid Disease: No - Surgical History Abdominal Surgery: No Appendectomy: No Cardiac Surgery: Yes (PACEMAKER) Cholecystectomy: Yes Lung Surgery: No Neurologic Surgery: No Orthopedic Surgery: Yes (left knee surgery) - Suicide/Smoking/Psychosocial Hx Smoking History: Never smoked Have you smoked in the past 12 months: No Information on smoking cessation initiated: No Hx Alcohol Use: No Drug/Substance Use Hx: No Substance Use Type: None Hx Substance Use Treatment: No <Kimani Daugherty - Last Filed: 08/08/18 12:05> - Past Medical History Allergies/Adverse Reactions: Allergies Allergy/AdvReac Type Severity Reaction Status Date / Time No Known Drug Allergies Allergy Unknown Verified 08/08/18 09:12 wheat sensitivity AdvReac Uncoded 08/08/18 09:12 Home Medications: Ambulatory Orders Aspirin Coated [Ecotrin -] 81 mg PO DAILY 10/20/14 Nebivolol HCl [Bystolic] 5 mg PO DAILY 10/20/14 Rosuvastatin [Crestor -] 20 mg PO DAILY 10/20/14 Artur/D3/Mag11/Zinc/Field Service Tech/Randy/Bor [Caltrate 600+D Plus Tablet] 1 each PO DAILY Ramipril 5 mg PO DAILY 08/07/15 metFORMIN HCL [Glucophage -] 1,000 mg PO HS 08/07/15 metFORMIN HCL [Metformin HCl] 500 mg PO DAILY 08/07/15 Cilostazol 100 mg .ROUTE BID 12/13/16 Acetaminophen [Tylenol] 650 mg PO Q4H PRN #20 capsule 08/08/18 Ibuprofen [Motrin -] 600 mg PO QID PRN #20 tablet 08/08/18 Review of Systems - Review of Systems Able to Perform ROS?: Yes Comments:: 08/08/18 09:57 GENERAL/CONSTITUTIONAL: No fever or chills. No weakness. HEAD, EYES, EARS, NOSE AND THROAT: No change in vision. No ear pain or discharge. No sore throat. CARDIOVASCULAR: No chest pain or shortness of breath. RESPIRATORY: No cough, wheezing, or hemoptysis. GASTROINTESTINAL: (+)Nausea, diarrhea, LLQ pain. No vomiting or constipation. GENITOURINARY: No dysuria, frequency, or change in urination. MUSCULOSKELETAL: (+)LT sided flank pain. No joint swelling or pain. No neck or back pain. SKIN: No rash NEUROLOGIC: No headache, vertigo, loss of consciousness, or change in strength/ sensation. ENDOCRINE: No increased thirst. No abnormal weight change. HEMATOLOGIC/LYMPHATIC: No anemia, easy bleeding, or history of blood clots. ALLERGIC/IMMUNOLOGIC: No hives or skin allergy. <Perri Phelps - Last Filed: 08/08/18 09:56> *Physical Exam - Vital Signs Last Vital Signs Temp Pulse Resp BP Pulse Ox 97.4 F L 90 16 158/68 98 08/08/18 08:50 08/08/18 08:50 08/08/18 08:50 08/08/18 08:50 08/08/18 08:50 - Physical Exam Comments: 08/08/18 09:57 GENERAL: Awake, alert, and fully oriented, in no acute distress HEAD: No signs of trauma EYES: PERRLA, EOMI, sclera anicteric, conjunctiva clear ENT: Auricles normal inspection, hearing grossly normal, nares patent, oropharynx clear without exudates. Moist mucosa NECK: Normal ROM, supple, no lymphadenopathy, JVD, or masses LUNGS: Breath sounds equal, clear to auscultation bilaterally. No wheezes, and no crackles HEART: (+)Pacemaker LT upper chest. Regular rate and rhythm, normal S1 and S2, no murmurs, rubs or gallops ABDOMEN: (+)LLQ tenderness to palpation. Soft, normoactive bowel sounds. No guarding, no rebound. No masses MSK: (+)LT CVA tenderness to palpation. EXTREMITIES: Normal range of motion, no edema. No clubbing or cyanosis. No cords, erythema, or tenderness NEUROLOGICAL: Cranial nerves II through XII grossly intact. Normal speech, normal gait SKIN: Warm, Dry, normal turgor, no rashes or lesions noted. <Perri Phelps - Last Filed: 08/08/18 09:56> - Vital Signs Last Vital Signs Temp Pulse Resp BP Pulse Ox 97.4 F L 90 16 158/68 98 08/08/18 08:50 08/08/18 08:50 08/08/18 08:50 08/08/18 08:50 08/08/18 08:50 <Kimani Daugherty - Last Filed: 08/08/18 12:05> Heart Score/ECG Review #1 ECG reviewed & interpreted by me at: 10:40 08/08/18 10:50 NSR 77, LBBB, scarbossa negative, QTC 486 msec <Kimani Daugherty - Last Filed: 08/08/18 12:05> ED Treatment Course - LABORATORY CBC & Chemistry Diagram: 08/08/18 09:24 08/08/18 09:24 <Perri Phelps - Last Filed: 08/08/18 09:56> - LABORATORY CBC & Chemistry Diagram: 08/08/18 09:24 08/08/18 09:24 - RADIOLOGY Radiology Studies Ordered: Category Date Time Status SPIRAL- RENAL-STONE CT [CT] Stat CT Scan 08/08/18 09:43 Ordered <Kimani Daugherty - Last Filed: 08/08/18 12:05> Medical Decision Making - Medical Decision Making 08/08/18 09:52 A portion of this note was documented by scribe services under my direction. I have reviewed the details of the note, within reason, and agree with the documentation with the following case summary and management plan written by me. Patient treated in the ED. Nursing notes are reviewed and incorporated into the medical decision-making. Vital signs reviewed. Peripheral IV access obtained by the nurse, laboratory studies are drawn and sent, reviewed and interpreted by myself. Vital Signs Temp Pulse Resp BP Pulse Ox 97.4 F L 90 16 158/68 98 08/08/18 08:50 08/08/18 08:50 08/08/18 08:50 08/08/18 08:50 08/08/18 08:50 77 year old female history of renal colic, diabetes, hypertension cardiac myopathy status post pacemaker, partial bowel resection, cholecystectomy presents with left flank pain and abdominal pain for one week. The patient reports pain worsened last day or 2 with associated nausea. No fevers or chills. Patient reports chronic diarrhea that sent changed since her partial bowel resection. Patient reported that this pain could feel like her renal colic but is unsure. Denies dysuria or hematuria. Differential includes renal colic, cystitis, pyelonephritis, bowel obstruction, colitis, diverticulitis. We'll obtain labs including urinalysis and urine culture. Obtain spiral CT of the abdomen pelvis and reassess. 08/08/18 12:01 CBC, BMP 08/08/18 09:24 08/08/18 09:24 CMP Sodium 140 mmol/L (136-145) 08/08/18 09:24 Potassium 4.2 mmol/L (3.5-5.1) 08/08/18 09:24 Chloride 106 mmol/L (98-107) 08/08/18 09:24 Carbon Dioxide 28 mmol/L (21-32) 11/24/18 09:24 Anion Gap 5 MMOL/L (8-16) L 08/08/18 09:24 BUN 20 mg/dL (7-18) H 08/08/18 09:24 Creatinine 0.9 mg/dL (0.55-1.3) 08/08/18 09:24 Creat Clearance w eGFR > 60 (>60) 08/08/18 09:24 Random Glucose 223 mg/dL (74-106) H 08/08/18 09:24 Calcium 9.1 mg/dL (8.5-10.1) 08/08/18 09:24 Phosphorus 2.4 mg/dL (2.5-4.9) L 08/08/18 09:24 Magnesium 2.1 mg/dL (1.8-2.4) 08/08/18 09:24 Total Bilirubin 0.2 mg/dL (0.2-1) 08/08/18 09:24 AST 14 U/L (15-37) L 08/08/18 09:24 ALT 26 U/L (13-61) 08/08/18 09:24 Alkaline Phosphatase 105 U/L (45-117) 08/08/18 09:24 Creatine Kinase 22 IU/L (26-192) L 08/08/18 09:24 Troponin I < 0.02 ng/ml (0.00-0.05) 08/08/18 09:24 Total Protein 6.4 g/dl (6.4-8.2) 08/08/18 09:24 Albumin 3.3 g/dl (3.4-5.0) L 08/08/18 09:24 Lipase 99 U/L (73-393) 08/08/18 09:24 Urine Test Results Urine Color Yellow 08/08/18 09:24 Urine Appearance Clear 08/08/18 09:24 Urine pH 5.0 (5.0-8.0) 08/08/18 09:24 Ur Specific [place] 1.019 (1.010-1.035) 08/08/18 09:24 Urine Protein Negative (NEGATIVE) 08/08/18 09:24 Urine Glucose (UA) 1+ (NEGATIVE) H 08/08/18 09:24 Urine Ketones Negative (NEGATIVE) 08/08/18 09:24 Urine Blood 1+ (NEGATIVE) H 08/08/18 09:24 Urine Nitrite Negative (NEGATIVE) 08/08/18 09:24 Urine Bilirubin Negative (<2.0 mg/dL) 08/08/18 09:24 Ur Leukocyte Esterase Negative (NEGATIVE) 08/08/18 09:24 Ur Epithelial Cells Rare /HPF (FEW) 08/08/18 09:24 Urine Mucus Rare 08/08/18 09:24 CT scan reviewed. no acute findings. Some persistent bibasilar pulm opacities, persistent since 12/2016. I informed patient of the results. I looked at her skin. No rashes noted. Could this be MSK pain? pt pain reproducible with twisting and movements. Pt has been working hard during the week, physical labor around house. At this point, no acute findings. Could this be a passed stone? Some blood in urine, but no findings on CT scan. Either way, I will write motrin and tylenol prescriptions. The patient will follow up with Dr. Perez on Friday. Pt will inform Dr. Perez about the pulm opacities and follow up as an outpatient. Pt feels comfortable going home. I discussed the physical exam findings, ancillary test results and final diagnoses with the patient. I answered all of the patient's questions. The patient was satisfied with the care received and felt comfortable with the discharge plan and treatment plan. The patient will call their primary care physician within 24 hours to arrange follow-up and will return to the Emergency Department with any new, persistant or worsening symptoms. <Kimani Daugherty - Last Filed: 08/08/18 12:05> *DC/Admit/Observation/Transfer - Attestations Scribe Attestion: 08/08/18 09:57 Documentation prepared by Perri Phelps, acting as medical receptionist for Kimani Daugherty MD. <Perri Phelps - Last Filed: 08/08/18 09:56> - Discharge Dispostion Decision to Admit order: No <Kimani Daugherty - Last Filed: 08/08/18 12:05> Diagnosis at time of Disposition: Abdominal pain Qualifiers: Abdominal location: left lower quadrant Qualified Code(s): R10.32 - Left lower quadrant pain - Discharge Dispostion Disposition: HOME Condition at time of disposition: Stable - Prescriptions Prescriptions: Acetaminophen [Tylenol] 650 mg PO Q4H PRN #20 capsule PRN Reason: Pain Ibuprofen [Motrin -] 600 mg PO QID PRN #20 tablet PRN Reason: Pain - Referrals Referrals: Toño Perez MD [Primary Care Provider] - - Patient Instructions Printed Discharge Instructions: DI for Abdominal Pain-Adult Additional Instructions: Please follow up with Dr. Perez. Call on Friday to schedule an appointment. Take 650 mg tylenol every 4 to 6 hours as needed. Please tell your doctor about your CT scan findings of the opacities in the lungs. This has been stable since December 2016. If you have worsening or uncontrollable pain, please return to the ER for further evaluation. - Post Discharge Activity
[2018-08-08 10:03] LABS: BASO % 0.6 % (0-2.0); EOS % 1.9 % (0-4.5); HEMATOCRIT 38.4 % (32.4-45.2); HEMOGLOBIN 13.1 GM/dL (10.7-15.3); MCH 27.8 pg (25.7-33.7); MCHC 34.2 g/dl (32.0-36.0); MEAN CELL VOLUME 81.3 fl (80-96); MEAN PLT VOLUME 8.4 fl (7.5-11.1); MONO % 8.3 % (3.8-10.2); NEUT % 60.2 % (42.8-82.8); PLATELET COUNT 208 K/MM3 (134-434); RBC 4.72 M/mm3 (3.60-5.2); RDW 14.9 % (11.6-15.6); URINE APPEARANCE CLEAR; URINE BILIRUBIN NEGATIVE (<2.0 mg/dL); URINE COLOR YELLOW; URINE GLUCOSE (UA) 1+ (NEGATIVE); URINE KETONE NEGATIVE (NEGATIVE); URINE LEUK ESTERASE NEGATIVE (NEGATIVE); URINE NITRITE NEGATIVE (NEGATIVE); URINE PROTEIN NEGATIVE (NEGATIVE); URINE UROBILINOGEN NEGATIVE mg/dL (0.2-1.0); WHITE BLOOD COUNT 5.3 K/mm3 (4.0-10.0)
[2018-08-08 10:18] LABS: EPI CELLS RARE /HPF (FEW); URINE HYALINE CAST 1 /lpf; URINE MUCUS RARE
[2018-08-08 11:09] LABS: ALBUMIN 3.3 g/dl (3.4-5.0); ALK PHOS 105 U/L (45-117); ANION GAP 5 MMOL/L (8-16); BILIRUBIN,TOTAL 0.2 mg/dL (0.2-1); BLOOD UREA NITROGEN 20 mg/dL (7-18); CALCIUM 9.1 mg/dL (8.5-10.1); CHLORIDE 106 mmol/L (98-107); CO2 28 mmol/L (21-32); CREATININE 0.9 mg/dL (0.55-1.3); GLUCOSE,RANDOM 223 mg/dL (74-106); LIPASE 99 U/L (73-393); MAGNESIUM 2.1 mg/dL (1.8-2.4); PHOSPHOROUS 2.4 mg/dL (2.5-4.9); POTASSIUM 4.2 mmol/L (3.5-5.1); SGOT/AST 14 U/L (15-37); SGPT/ALT 26 U/L (13-61); SODIUM 140 mmol/L (136-145); TOT PROT 6.4 g/dl (6.4-8.2)
[2018-08-08] MEDS ORDERED: KETOROLAC TROMETHAMINE 30 MG/1 ML VIAL IVPUSH ONE (11:19)
[2018-08-08] MEDS ORDERED: ACETAMINOPHEN 1000 MG/100 ML VIAL (NON FORMULARY) IVPB ONE (11:19)
[2018-08-08] MEDS ORDERED: ACETAMINOPHEN INJECTION 100 ML IVPB ONE (11:41)
[2018-08-08] MEDS ORDERED: KETOROLAC TROMETHAMINE 30 MG/1 ML VIAL ONE (11:42)
--- NOTE | 2018-08-09 13:45 | EKG ---
Test Reason : Blood Pressure : / mmHG Vent. Rate : 077 BPM Atrial Rate : 077 BPM P-R Int : 152 ms QRS Dur : 136 ms QT Int : 430 ms P-R-T Axes : 047 -08 085 degrees QTc Int : 486 ms NORMAL SINUS RHYTHM LEFT BUNDLE BRANCH BLOCK ABNORMAL ECG WHEN COMPARED WITH ECG OF 13-DEC-2016 12:14, NO SIGNIFICANT CHANGE WAS FOUND Confirmed by JAYA MAYES MD ([id number]) on 08/09/2018 1:45:14 PM Referred By: Confirmed By:JAYA MAYES MD
== END 2018-08-08 12:16 | disposition home or self-care (01) ==
LOC: JER 08:49
PROC: 3E033NZ Introduction of Analgesics, Hypnotics, Sedatives into Peripheral Vein, Percutaneous Approach (ICD-10-PCS; principal; 2018-08-08)
PROC: 3E0333Z Introduction of Anti-inflammatory into Peripheral Vein, Percutaneous Approach (ICD-10-PCS; 2018-08-08)
DX: R10.32 Left lower quadrant pain (principal); Z87.442 Personal history of urinary calculi; E11.9 Type 2 diabetes mellitus without complications; Z79.84 Long term (current) use of oral hypoglycemic drugs; I10 Essential (primary) hypertension; I42.9 Cardiomyopathy, unspecified; Z95.0 Presence of cardiac pacemaker
CPT/HCPCS: 36415; 74176; 80053; 81003; 81015; 82550; 83690; 83735; 84100; 84484; 85025; 87086; 93005; 93010; 96374; 96375; 99284-25; J0131

== ENCOUNTER 2020-09-14 12:57 | Emergency (ER) | payer OTHER, MEDICARE ==
[2020-09-14 13:40] VITALS: BMI 29.9
[2020-09-14] MEDS ORDERED: BAMLANIVIMAB 700 MG in SODIUM CHLORIDE 180 ML IVPB ONE (14:08)
[2020-09-14 18:34] VITALS: BP 139/72; PULSE 84; TEMP 98.9
== END 2020-09-14 18:32 | disposition home or self-care (01) ==
LOC: JER 12:57
DX: U07.1 COVID-19 (principal)
CPT/HCPCS: 99283-25; M0239; Q0239

== ENCOUNTER 2023-02-09 10:37 | Emergency (ER) | payer OTHER, MEDICARE ==
[2023-02-09] MEDS ORDERED: ACETAMINOPHEN 1000 MG/100 ML BAG IVPB ONE (10:49)
[2023-02-09] MEDS ORDERED: ONDANSETRON 4 MG/2 ML VIAL IVPUSH ONE (10:49)
[2023-02-09 10:57] VITALS: BP 130/60; PULSE 89; RESP 16; TEMP 97.7; BMI 28.9
[2023-02-09] MEDS ORDERED: ACETAMINOPHEN INJECTION 100 ML IVPB ONE (11:00)
[2023-02-09] MEDS ORDERED: ONDANSETRON 4 MG/2 ML VIAL ONE (11:00)
[2023-02-09] MEDS ORDERED: SODIUM CHLORIDE 0.9% 500 ML INFUS.BAG IV ONE (11:04)
[2023-02-09 11:46] LABS: HEMATOCRIT 35.9 % (32.4-45.2); HEMOGLOBIN 11.9 G/dL (10.7-15.3); MCHC 33.1 g/dl (32.0-36.0); MEAN CELL VOLUME 81.6 fl (80-96); MEAN PLT VOLUME 8.8 fl (7.5-11.1); PLATELET COUNT 234.5 10^3/uL (134-434); RDW 16.4 % (11.6-15.6); WHITE BLOOD COUNT 5.6 10^3/uL (4.0-10.8)
[2023-02-09 11:54] LABS: ALBUMIN 3.6 g/dl (3.4-5.0); BILIRUBIN,TOTAL 0.2 mg/dl (0.2-1); CALCIUM 9.7 mg/dl (8.5-10); CREATININE 0.9 mg/dl (0.55-1.3); MAGNESIUM 1.7 mg/dL (1.8-2.4); POTASSIUM 4.2 mmol/L (3.5-5.1); TOT PROT 6.2 g/dl (6.4-8.2)
[2023-02-09] MEDS ORDERED: MAGNESIUM SULF 50% (8.12 MEQ/2 ML-1 GM VIAL) IVPB ONE (12:37)
[2023-02-09] MEDS ORDERED: MAGNESIUM SULFATE IN WATER 2 GM/50 ML IVPB IVPB ONE (12:39)
[2023-02-09 14:38] LABS: ADD RBC MORPHOLOGY YES; PLATELET ESTIMATE ADEQUATE
== END 2023-02-09 15:07 | disposition home or self-care (01) ==
LOC: FER 10:37
PROC: 3E033NZ Introduction of Analgesics, Hypnotics, Sedatives into Peripheral Vein, Percutaneous Approach (ICD-10-PCS; principal; 2023-02-09)
PROC: 3E033GC Introduction of Other Therapeutic Substance into Peripheral Vein, Percutaneous Approach (ICD-10-PCS; 2023-02-09)
PROC: 3E033GC Introduction of Other Therapeutic Substance into Peripheral Vein, Percutaneous Approach (ICD-10-PCS; 2023-02-09)
DX: R10.32 Left lower quadrant pain (principal)
CPT/HCPCS: 36415; 74177-TC; 80053; 81003; 83605; 83690; 83735; 85025; 87086; 99285-25; Q9967

== ENCOUNTER 2024-01-08 09:58 | Observation (INO) | payer OTHER, MEDICARE ==
[2024-01-08 10:35] VITALS: BMI 28.8
[2024-01-08] MEDS ORDERED: FAMOTIDINE 20 MG/50 ML IVPB 20 MG/50 ML MG IVPB ONE (11:29)
[2024-01-08] MEDS ORDERED: ONDANSETRON 4 MG/2 ML VIAL ONE (11:29)
[2024-01-08] MEDS: ONDANSETRON 4 MG/2 ML VIAL IVPUSH ONE (11:32)
[2024-01-08] MEDS: FAMOTIDINE 20 MG/50 ML IVPB 20 MG/50 ML MG IVPB ONE (11:35)
[2024-01-08 11:43] LABS: HEMATOCRIT 40.6 % (32.4-45.2); HEMOGLOBIN 12.9 G/dL (10.7-15.3); MCH 25.5 pg (25.7-33.7); MCHC 31.8 g/dl (32.0-36.0); MEAN CELL VOLUME 80.2 fl (80-96); MEAN PLT VOLUME 8.6 fl (7.5-11.1); RBC 5.06 10^6/uL (3.60-5.2); RDW 17.8 % (11.6-15.6); WHITE BLOOD COUNT 7.8 10^3/uL (4.0-10.8)
[2024-01-08 11:49] LABS: INR 1.02 (0.83-1.09); PROTHROMBIN TIME (PATIENT) 11.5 SEC (9.7-13.0)
[2024-01-08 11:53] LABS: ALBUMIN 4.4 g/dl (3.4-5.0); BILIRUBIN,TOTAL 0.4 mg/dl (0.2-1); CREATININE 1.1 mg/dl (0.6-1.3); POTASSIUM 4.1 mmol/L (3.5-5.1); TOT PROT 6.8 g/dl (6.4-8.2)
[2024-01-08 12:26] LABS: PLATELET ESTIMATE ADEQUATE
[2024-01-08 12:27] LABS: ANISOCYTOSIS 1+
[2024-01-08] MEDS ORDERED: cefTRIAXone SODIUM 1 GM VIAL ONE (12:43)
[2024-01-08] MEDS: CEFTRIAXONE 1 GM in DEXTROSE 5%-WATER - 100 ML IVPB ONE (12:45)
[2024-01-08 14:27] VITALS: RESP 18
[2024-01-08] MEDS: PANTOPRAZOLE 40 MG TABLET PO SCH (19:01)
[2024-01-08] MEDS: MECLIZINE HCL 25 MG TABLET (FP) PO SCH (19:01)
[2024-01-08] MEDS: RANOLAZINE E.R. 500 MG TABLET (FP) PO SCH (21:29)
[2024-01-08] MEDS: INSULIN ASPART SLIDING SCALE (NOVOLOG) 1 VIAL SQ SCH (21:29)
[2024-01-08] MEDS: ROSUVASTATIN CA 20 MG TABLET PO SCH (21:29)
[2024-01-08] MEDS: INSULIN (LEVEMIR) 100 UNITS/ML UNITS SQ SCH (22:58)
[2024-01-09] MEDS: CEFTRIAXONE 1 GM in DEXTROSE 5%-WATER - 50 ML IVPB SCH (11:12)
[2024-01-09] MEDS: ASPIRIN 81 MG CHEWABLE TABLETS PO SCH (11:12)
[2024-01-09 14:37] VITALS: BP 121/54; PULSE 71; TEMP 97.8
== END 2024-01-09 15:04 | disposition home or self-care (01) ==
LOC: FER 09:58 → FM/S 12:41
PROC: 3E03329 Introduction of Other Anti-infective into Peripheral Vein, Percutaneous Approach (ICD-10-PCS; principal; 2024-01-08)
PROC: 3E013VG Introduction of Insulin into Subcutaneous Tissue, Percutaneous Approach (ICD-10-PCS; 2024-01-08)
DX: R42 Dizziness and giddiness (principal); R26.81 Unsteadiness on feet; E11.9 Type 2 diabetes mellitus without complications; I10 Essential (primary) hypertension; E78.5 Hyperlipidemia, unspecified; K29.60 Other gastritis without bleeding; K58.9 Irritable bowel syndrome, unspecified; N20.0 Calculus of kidney; M19.90 Unspecified osteoarthritis, unspecified site; Z95.0 Presence of cardiac pacemaker; Z79.84 Long term (current) use of oral hypoglycemic drugs; K21.9 Gastro-esophageal reflux disease without esophagitis
CPT/HCPCS: 36415; 70450-TC; 80053; 80061; 81003; 81015; 82962; 83036; 84484; 85027; 85610; 85730; 87086; 93005; 93880-TC; 96365; 96366; 96367; 96372; 96375; 97116-GP; 97161-GP; 99285-25; G0378

== ENCOUNTER 2024-09-17 12:25 | Emergency (ER) | payer OTHER, MEDICARE ==
[2024-09-17 12:32] VITALS: BP 117/52; PULSE 81; RESP 18; TEMP 97.9; BMI 28.9
[2024-09-17 14:08] LABS: HEMATOCRIT 42.6 % (32.4-45.2); HEMOGLOBIN 13.9 G/dL (10.7-15.3); MCH 26.3 pg (25.7-33.7); MCHC 32.5 g/dl (32.0-36.0); MEAN CELL VOLUME 80.8 fl (80-96); PLATELET COUNT 226.9 10^3/uL (134-434); RBC 5.27 10^6/uL (3.60-5.2); RDW 16.1 % (11.6-15.6); WHITE BLOOD COUNT 6.6 10^3/uL (4.0-10.8)
[2024-09-17 14:16] LABS: ALBUMIN 4.3 g/dl (3.4-5.0); ALK PHOS 82 U/L (45-117); ANION GAP 8 mmol/L (4-13); BILIRUBIN,TOTAL 0.4 mg/dl (0.2-1); CALCIUM 10.3 mg/dl (8.5-10.1); CHLORIDE 103 mmol/L (98-107); CO2 28 mmol/L (21-32); CREATININE 1.1 mg/dl (0.6-1.3); GLUCOSE,RANDOM 151 mg/dl (74-106); POTASSIUM 4.2 mmol/L (3.5-5.1); SGOT/AST 11 U/L (15-37); SGPT/ALT 10 U/L (7-52); SODIUM 139 mmol/L (136-145); TOT PROT 6.6 g/dl (6.4-8.2)
[2024-09-17 14:34] LABS: ANISOCYTOSIS 1+; PLATELET ESTIMATE ADEQUATE
[2024-09-17 15:10] LABS: N-TERMINAL BNP 77.4 pg/ml (5-450)
== END 2024-09-17 17:12 | disposition home or self-care (01) ==
LOC: FER 12:25
DX: R07.1 Chest pain on breathing (principal)
CPT/HCPCS: 36415; 71046-TC-FY; 71275-TC; 80053; 83880; 84484; 85027; 85379; 93005; 99285-25; Q9967